=== PATIENT | female | born 1990 | race Two or more races ===

== ENCOUNTER 2019-04-06 23:16 | Emergency (ER) | payer OTHER ==
[~2019-04-06] VITALS: Ht 160 cm; Wt 71.4 kg
--- NOTE | 2019-04-06 23:46 | NUR ---
THIS IS A 28Y F THAT COMES IN TONIGHT W/ C/O COUGH FEVER AND SORE THROAT LASTING 4DAYS. PT STS SHE HAS BEEN TAKING OTC COLD MEDS (DAYQUIL AND MUCINEX) WITH NO RELIEF. PT STS LAST DOSE TAKEN WAS AT 2130. PT CONNECTED TO MONITORING VSS, NADN. CALL LIGHT IN REACH, FAMILY AT BEDSIDE
[2019-04-06] MEDS ORDERED: ACETAMINOPHEN 325 MG TABLET ONE (23:49)
[2019-04-06] MEDS ORDERED: IBUPROFEN 600 MG TABLET ONE (23:49)
--- NOTE | 2019-04-06 23:54 | NUR ---
PT MEDICATED PER JUN, PT TO XRAY AT THIS TIME
[2019-04-07] MEDS ORDERED: IBUPROFEN 600 MG TABLET PO ONE
[2019-04-07] MEDS ORDERED: ACETAMINOPHEN 325 MG TABLET PO ONE
[2019-04-07 00:25] LABS: RAPID INFLUENZA A Negative (Negative); RAPID INFLUENZA B POSITIVE (Negative)
[2019-04-07 00:58] VITALS: BP 100/61
== END 2019-04-07 01:35 | disposition home or self-care (01) ==
LOC: ED 04-07 01:30
DX: J10.1 Influenza due to other identified influenza virus with other respiratory manifestations (principal); R50.81 Fever presenting with conditions classified elsewhere; M79.10 Myalgia, unspecified site
CPT/HCPCS: 71046; 87400; 99284